=== PATIENT | male | born 1940 | race Caucasian/White ===

== ENCOUNTER 2016-07-16 15:04 | Emergency (ER) | payer MEDICARE, OTHER ==
[~2016-07-16 15:04] MED LIST: CARBAMAZEPINE200 MG PO; CEPHALEXIN500 M1 PO; FLEXERIL10 MG PO; FLOMAX0.4 MG PO; H PO; HYDROCODON-ACE1 EA16 PO; HYSINGLA ER40 MG PO; INDOMETHACIN25 MG PO; LEVOTHYROXINE75 MCG PO; MEDROL4 MG/DOSE- PO; MILK OF MAGNESIA PO; MIRALAX17 G2 PO; MOBIC15 MG PO; NORCO 5-325 TA1 EACH PO; NORCO 5/325 TAB1 TAB PO; NUCYNTA50 MG PO; PERCOCET 5MG/AP1 TA2 PO; PRILOSEC20 MG PO; SENOKOT-S TABL1 EACH PO; SENOKOT-S TABLE1 TAB PO; STOOL SOFTENER100 M2 PO; SULFAMETHOXAZOL1 TA1 PO; TYLENOL500 MG PO
== END 2016-07-16 17:10 ==
LOC: EDMED 15:04
DX: S46.812A Strain of other muscles, fascia and tendons at shoulder and upper arm level, left arm, initial encounter (principal); W10.9XXA Fall (on) (from) unspecified stairs and steps, initial encounter